=== PATIENT | female | born 1955 | race Caucasian/White ===

== ENCOUNTER 2016-11-23 05:43 | Day surgery (SDC) | payer MEDICARE, OTHER ==
[2016-11-23] MEDS ORDERED: CEFAZOLIN 1 GM VIAL ONE (06:08)
[2016-11-23] MEDS ORDERED: REMIFENTANIL HCL 2,000 MCG VIAL IV ONE (06:17)
[2016-11-23] MEDS ORDERED: TRIAMCINOLONE 40 MG/ML VIAL ONE (06:46)
[2016-11-23] MEDS ORDERED: hydrALAZINE 20 MG/ML VIAL IV PRN ×2 (06:47→10:42)
[2016-11-23] MEDS ORDERED: LABETALOL 20 MG/4 ML SYRINGE IV PRN ×2 (06:47→10:42)
[2016-11-23] MEDS ORDERED: ONDANSETRON HCL 4 MG ODT TAB PO PRN ×2 (06:47→10:42)
[2016-11-23] MEDS ORDERED: PROMETHAZINE 25 MG/ML VIAL IV PRN ×4 (06:47→10:42)
[2016-11-23] MEDS ORDERED: ONDANSETRON HCL 4 MG/2 ML VIAL IV PRN ×2 (06:47→10:42)
[2016-11-23] MEDS ORDERED: MEPERIDINE 25 MG/ML TUBEX IV PRN (06:47)
[2016-11-23] MEDS ORDERED: FENTANYL 100 MCG/2 ML VIAL IV PRN ×3 (06:47→10:42)
[2016-11-23] MEDS ORDERED: HYDROmorphone 1 MG INJECTION IV PRN ×6 (06:47→10:42)
--- NOTE | 2016-11-23 06:48 | SC.ANESPOS ---
[id number], Hemodynamically Stable, Pain Control Adequate Phase I & II Recovery Complete: Yes Apparent Anesthesia Complication: No : N - Vital Signs Blood Pressure: 116/77 Pulse: 97 Resp Rate: 18 O2 Sat: 93 Temp: 97.6 F
--- NOTE | 2016-11-23 06:54 | HIM.ANES ---
Anesthesia Evaluation & Plan Diagnoses: SPONDYLOSIS W/O MYELOPATHY OR RADICULOPATHY, CERVICAL REGION (11/23/16) Consented Procedure: CERVICAL 4-5, 6-7 ANTERIOR CERVICAL DISCECTOMY AND INTERBODY FUSION AND OTHER PROCEDURES INDICATED - Focused Review of Systems Cardiac History: Yes: Hx Cardiac Disorders, Hx Abnormal Cholesterol/ Hyperlipidemia HEENT: Yes: Hx Hearing Impairment (R>L), Hx Vision Problem (PRESCRIPTION GLASSES ), Other HEENT Problems Hx Other HEENT Problems: CHRONIC RHINNITIS Respiratory: Yes: Hx Snoring Gastrointestinal: Yes: Hx Gastroesophageal Reflux Disease (Controlled @ present) , Hx Gastrointestinal Disorders, Hx Colitis (ULCERATIVE COLITIS), Hx Colonoscopy (2013 NORMAL), Hx Endoscopy (2013) Neurological/Musculoskeletal: Yes: Hx Back Pain, Hx Numbness, Tingling, Weakness in Arms & Legs, Hx Neurological Disorders Other Neurological Problems: CERVICALGIA, NEUROPATHY IN HANDS AND AND FEET Psychological: Yes Hx Anxiety, Yes Hx Depression, Yes Hx Mental/Emotional Disorders HX Other Psyco/Soc Problems: depression/anxiety Blood/Autoimmune: Yes: Hx Blood Transfusions (1994), Hx Anemia No: Hx AIDS, Hx Hepatitis (type) Smoking Status: Former smoker Surgical History: Yes: Cholecystectomy (2000), Back (CERVICAL NECK FUSION 2005) , Knee (02/2015 LEFT TKA) Other Surgical History: PARTIAL HEMICOLECTOMY OF THE LARGE INTESTINE 1994 - Focused Physical Exam NPO since: 11/22/16 2230 Mallampati: Class II Thyromental Distance: Less than 3 Neck: Extends approx 45 s pain Dental: Loose/Decaying Teeth (Very poor dentition/poss damage discussed) Cardiovascular/Chest: Normal Respiratory: Lungs clear Any problems with anesthesia, including nausea and vomiting?: No Any relatives with a history of Malignant Hyperthermia?: No Beta Clay given (if appropriate): N/A Other: Allergies Allergy/AdvReac Type Severity Reaction Status Date / Time No Known Allergies Allergy Verified 11/23/16 06:19 Home Medications Medication Instructions Recorded Last Taken Type Acetaminophen [Arthritis Pain 650 mg PO DAILY PRN 10/09/16 Unknown History Relief] Alprazolam [Alprazolam ER] 0.5 mg PO DAILY PRN 10/09/16 11/22/16 History Atorvastatin Calcium [Lipitor] 40 mg PO HS 10/09/16 11/22/16 22:00 History Naproxen 250 mg PO DAILY 10/09/16 1 Week Ago History Sertraline HCl 200 mg PO HS 10/09/16 11/22/16 22:00 History Ergocalciferol (Vitamin D2) 50,000 units PO We@0900 11/23/16 11/22/16 History [Vitamin D] Height and Weight Patient's height 5 ft 2 in Patient's weight 131 lb 12.8 oz BMI 24.0 Vital Signs Temperature 97.6 F 11/23/16 06:48 Pulse Rate 97 11/23/16 06:48 Respiratory Rate 18 11/23/16 06:48 Blood Pressure 116/77 11/23/16 06:48 Pulse Oxygen Saturation 93 11/23/16 06:48 - Anesthetic Plan Anesthesia Type: General ASA Class: 2 -: I have examined this patient and reviewed the medical record. The patient has been assessed prior to anesthesia. Risks and benefits of anesthesia and anesthetic technique options have been discussed and all questions answered. The patient accepts the risk and desires me to proceed with the planned anesthetic.
--- NOTE | 2016-11-23 09:42 | HIMOPRPT ---
DATE OF PROCEDURE: 11/23/16 PREOPERATIVE DIAGNOSIS: 1- Cervical degenerative disc disease C4-5 C6-7 2- left Upper extremity radicular pain POSTOPERATIVE DIAGNOSIS: 1- Cervical degenerative disc disease C4-5, C6-7 2- left Upper extremity radicular pain PROCEDURE PERFORMED: 1. Anterior cervical diskectomy, interbody arthrodesis C4-5 2. Anterior cervical diskectomy, interbody arthrodesis C6-7 3. Anterior instrumentation C4-to C7 4- Placement of interbody cage C4-5 5. Placement of interbody cage C6-7 . 6. Removal deep implants spine C5-6 SURGEON: Johnnie Gayle MD. UNIX CONSULTANT: BRITTANY Yoon ANESTHESIA: General endotracheal Anesthesia. IV FLUIDS: Crystalloids ESTIMATED BLOOD LOSS: Minimal SPECIMENS: C4-5 and C6-7 disk. COMPLICATIONS: None. IMPLANTS: 1- Medtronic cervical locking plate 8 hole 2- Locking screws size 13 mm long 3- interbody cage size 5 at C4-5 and size 6 at C6-7 BRIEF HISTORY: SUSANNA ORDONEZ is a 61 year-old female patient. Patient had prior history of anterior cervical diskectomy and interbody arthrodesis at C5-6 done at an outside facility. Patient had developed adjacent segment degeneration at the level above and below . Patient had complaints of axial neck pain and upper extremity radicular pain. Patient had MRI evidence of canal and foraminal stenosis at C4-5 and C6-7 . Patient had tried and failed conservative treatment including anti-inflammatory medication, activity modification, physical therapy, chiropractic treatment, cervical epidural steroid injection. Patient had difficulty in activities of daily living. Failing conservative treatment patient indicated the desire to proceed with surgical intervention. It was explained that infection, bleeding and were risks that accompanied any invasive procedure and that paralysis is a possible complication of any spine surgery. It was explained to the patient that other risks, including but not limited to seroma, hematoma, artery or vein injury, nerve damage, pain, weakness, numbness, tingling, or bladder dysfunction, incontinence, spinal fluid leak, nonunion, malunion, implant failure, loss of fixation, painful hardware, persistent symptoms, adjacent segment instability, adjacent segment degeneration, need for further surgery, sore throat, hoarseness, difficulty swallowing, Su's syndrome, esophageal perforation, Tracheal injury, urine to retract infection, deep venous thrombosis, pulmonary embolism, pneumonia, ileus, ulcers, stroke, heartattack, and among others. It was explained that if he the patient had any reservation about any of these potential complications are if the risk of any of these complications occurring was unacceptable the patient should not undergo the procedure. Because he expressed understanding and chose to proceed as planned, the patient was taken to the operating room where the above listed procedure was performed. The patient volunteered an informed consent. The patient was seen on the day of surgery in the preop holding area. Surgical site was marked. The patient was then wheeled back into the operating room. DESCRIPTION OF THE PROCEDURE: The patient was seen and identified in the preop holding area. The surgical region was confirmed with the patient and initialed on the skin by the surgeon. The patient was then brought back to the operating room. The patient was transferred to the OSI flat table in the supine position and while still awake. The patient was positioned in a comfortable position. Patient then underwent induction of general endotracheal anesthesia without complication. Proper time out was performed confirming the identity of the patient and the planned procedure. Her head and neck was maintained in excellent alignment during placement of endotracheal tube which was then stabilized.[A Bruce catheter was placed as were sequential compression devices on both lower extremities, all of which were continued for the duration of the procedure. A well-padded bump was placed behind the shoulders to allow for very gentle cervical extension and optimal exposure to the anterior aspect of the neck. . Intraoperative neurophysiologic monitoring was also employed for the duration of the procedure and monitoring leads were also placed. The anterior aspect of the neck was shaved smooth with clippers and cleanse thoroughly with alcohol. The surgical region was sealed off with plastic drapes. C-arm was brought in to identify the approximate surgical region,which was marked on the skin with a pen. The area was then prepped and draped in standard sterile fashion. The patient received 2 g of Ancef intravenously immediately preoperatively and within 30 min. of skin incision. We utilized a standard anterior approach to the cervical spine from a left- sided approach. A transverse incision was made in the skin to left of the midline. Bovie cautery was used for additional dissection and hemostasis through the subcutaneous tissue. The platysma was identified, mobilized, and then transected in line with the skin incision. Blunt dissection was then continued down to the deeper fascial layers. Each of these layers was first mobilized bluntly and then retracted carefully. The strap muscles, trachea, pharynx and esophagus were retracted towards midline, and the vascular structures retracted laterally. blunt dissection was then continued down to the prevertebral fascia exposing the anterior longitudinal ligament. A lateral C-arm image was then obtained to confirm the surgical level and the level was identified as C4-5. The longus coli muscles were elevated and mobilized bilaterally. Blunt self retaining retractors were then placed. We proceeded with removal of the deep anterior cervical implants at C5-6. This was a Medtronic plate and it was removed uneventfully along with the 4 locking screws. Next we proceeded with the anterior discectomy and interbody arthrodesis for decompression of the canal at C4-5 . There was significant degeneration of the disc. The remaining portions of the disc were mobilized and resected in a piecemeal fashion using a combination of curettes, rongeurs and a high-speed bur. The disc was excised and osteophytes were resected laterally to the uncovertebral joints. This was also taken back to and through the annulus and posterior longitudinal ligament. The dura was identified and protected. No dural tears were encountered at any time during the procedure. Additional time was spent taking down some of the posterior osteophytes and particularly along the inferior aspect of the endplate of C4 and superior endplate of C5 . An angled curet was also used to undercut the posterior aspect of the vertebral bodies to allow for adequate decompression. Kerrison rongeur was also used for resection and some decompression of the foramina. The area was checked with a small narrow folk to ensure adequate decompression. The disc was irrigated on multiple occasions with copious amount of sterile normal saline. Epidural bleeding was managed with FloSeal. Next we placed Warren pins at C4-5 .Next we prepared for anterior interbody arthrodesis at C4-5 . The end plates of C4 and C5 were denuded of cartilage and exposing bleeding bone. We sized for a 5 millimeter size spacer. The center portion of this cage was packed with portions of local bone autograft. The cage was tamped into place gently. Final positioning was checked with lateral views on C-arm and felt to be satisfactory. The Warren pins were then removed. Next we proceeded with the anterior discectomy and interbody arthrodesis for decompression of the canal at C6-7 . There was significant degeneration of the disc. The remaining portions of the disc were mobilized and resected in a piecemeal fashion using a combination of curettes, rongeurs and a high-speed bur. The disc was excised and osteophytes were resected laterally to the uncovertebral joints. This was also taken back to and through the annulus and posterior longitudinal ligament. The dura was identified and protected. No dural tears were encountered at any time during the procedure. Additional time was spent taking down some of the posterior osteophytes and particularly along the inferior aspect of the endplate of C6 and superior endplate of C7 . An angled curet was also used to undercut the posterior aspect of the vertebral bodies to allow for adequate decompression. Kerrison rongeur was also used for resection and some decompression of the foramina. The area was checked with a small narrow folk to ensure adequate decompression. The disc was irrigated on multiple occasions with copious amount of sterile normal saline. Epidural bleeding was managed with FloSeal. Next we placed Warren pins at C6-7 .Next we prepared for anterior interbody arthrodesis at C6-7 . The end plates of C6 and C7 were denuded of cartilage and exposing bleeding bone. We sized for a 6 millimeter size spacer. The center portion of this cage was packed with portions of local bone autograft. The cage was tamped into place gently. Final positioning was checked with lateral views on C-arm and felt to besatisfactory. The Warren pins were then removed. Next we proceeded with the application of anterior instrumentation at C4-C7 . We used a Formspringtronic 8 hole plate. This was aligned on the anterior aspect of the cervical spine. This was then affixed with 4 screws. All the screws had excellent purchase and then were tightened to the final torque beyond the capturing. Orthogonal views were obtained on Berta and overall alignment and fixation were felt to be satisfactory. The wounds space was irrigated for a final time. A 1/8 inch Hemovac drain was placed deep within the wound space. We then prepared the wound for wound closure. The platysma fascia was reapproximated with Vicryl sutures as was the subcutaneous tissue. A Monocryl suture was used for the skin. Steri-Strips and sterile dressing was applied. Disposition: The patient was then transferred to his hospital bed in the supine position. The patient was awakened and extubated without complication. Patient was placed in cervical arthrosis. Upon awakening patient was able to demonstrate broad smoker function in the upper and lower extremities. Patient was then transferred to the postanesthesia care unit awake and in stable condition. No immediate complications were noted.
[2016-11-23] MEDS ORDERED: ALPRAZOLAM 0.5 MG PO PRN (09:58)
[2016-11-23] MEDS ORDERED: SODIUM CHLORIDE 0.9% 3 ML FLUSH FLUSH PRN (09:59)
[2016-11-23] MEDS ORDERED: MAGNESIUM HYDROXIDE 30 ML BOTTLE PO PRN (09:59)
[2016-11-23] MEDS ORDERED: DIPHENHYDRAMINE 50 MG/ML VIAL IV PRN (09:59)
[2016-11-23] MEDS ORDERED: Aluminum;Magnesium;Simethicone 30 ML UDC PO PRN (09:59)
[2016-11-23] MEDS ORDERED: DIPHENHYDRAMINE 25 MG CAP PO PRN (09:59)
[2016-11-23] MEDS ORDERED: NALOXONE 0.4 MG/ML AMPULE IV SCH (10:00)
[2016-11-23] MEDS ORDERED: Pharmacy Discontinue All Previous Acetaminophen Orders SCH (10:00)
[2016-11-23] MEDS ORDERED: FENTANYL 100 MCG/2 ML VIAL ONE ×2 (10:32→11:28)
[2016-11-23] MEDS: FENTANYL 100 MCG/2 ML VIAL IV PRN ×4 (10:37→11:50)
[2016-11-23] MEDS ORDERED: VITAMINS, MULTIPLE CAP PO SCH (12:00)
[2016-11-23] MEDS: OXYCODONE HCL 5 MG TABLET PO SCH ×4 (12:37→20:44)
[2016-11-23 13:07] VITALS: BMI 25.2
[2016-11-23] MEDS ORDERED: Vaccine Screening Complete SCH (14:00)
[2016-11-23] MEDS: ACETAMINOPHEN 325 MG/TAB TABLET PO SCH ×3 (14:11→23:13)
[2016-11-23] MEDS: Cefazolin 2gm/50 ml D5W 2 GM/50 ML RTU IV SCH ×2 (14:12→20:45)
[2016-11-23] MEDS: ONDANSETRON HCL 4 MG/2 ML VIAL IV SCH ×3 (14:12→23:13)
[2016-11-23] MEDS: CALCIUM CARBONATE + VITAMIN D 500 MG TAB PO SCH ×2 (14:15→17:08)
[2016-11-23] MEDS ORDERED: DEXAMETHASONE 4 MG/ML VIAL IV ONE (15:36)
[2016-11-23] MEDS ORDERED: FENTANYL 250 MCG/5 ML VIAL IV ONE (15:36)
[2016-11-23] MEDS ORDERED: ONDANSETRON HCL 4 MG/2 ML VIAL IV ONE (15:36)
[2016-11-23] MEDS ORDERED: SUCCINYLCHOLINE 20 MG/1 ML INJ 10 ML MDV IV ONE (15:36)
[2016-11-23] MEDS ORDERED: LIDOCAINE 100 MG PFS IV ONE (15:36)
[2016-11-23] MEDS ORDERED: MIDAZOLAM 2 MG/2 ML VIAL IV ONE (15:36)
[2016-11-23] MEDS ORDERED: PROPOFOL 200 MG/20 ML VIAL IV ONE (15:36)
[2016-11-23] MEDS: SODIUM CHLORIDE 0.9% 3 ML FLUSH FLUSH SCH (17:09)
[2016-11-23] MEDS ORDERED: DOCUSATE-SENNA CONCENTRATE TAB PO SCH (21:00)
[2016-11-23] MEDS ORDERED: ATORVASTATIN 40 MG TAB PO SCH (21:00)
[2016-11-23] MEDS ORDERED: SERTRALINE HCL 100 MG TAB PO SCH (21:00)
[2016-11-24] MEDS: OXYCODONE HCL 5 MG TABLET PO SCH ×3 (02:46→09:50)
[2016-11-24 05:42] LABS: MPV 7.5 fL (7.4-10.4)
[2016-11-24] MEDS: SODIUM CHLORIDE 0.9% 3 ML FLUSH FLUSH SCH (05:53)
[2016-11-24] MEDS: ACETAMINOPHEN 325 MG/TAB TABLET PO SCH (05:56)
[2016-11-24] MEDS: Cefazolin 2gm/50 ml D5W 2 GM/50 ML RTU IV SCH (05:56)
[2016-11-24 05:57] LABS: BLOOD UREA NITROGEN 6 MG/DL (7-17); CALCIUM 9.1 MG/DL (8.4-10.2); CALCULATED OSMOLALITY 267 MOs/Kg (270-290); CHLORIDE 100 mEq/L (98-107); GLUCOSE 95 MG/DL (70-99); SODIUM LEVEL 140 mEq/L (137-146)
[2016-11-24] MEDS: ONDANSETRON HCL 4 MG/2 ML VIAL IV SCH (05:57)
--- NOTE | 2016-11-24 06:58 | PCM.ORTHBL ---
- Subjective Post Op Day: 1 Daily Assessment - Patient: Reports: No new complaints, Awake Alert Oriented x4 , Feels better, Tolerating Regular Diet, Voiding without difficulty, Afebrile, Ambulating in [place], Ambulating in Room, Other (denies chest pain). Denies: Hoarseness of voice, Difficulty Swallowing, Shortness of breath, Nausea, Vomiting - Objective / Physical Exam Vital Signs: Temperature: 97.8 F (11/24/16 06:44) HR: 86 (11/24/16 06:44)RR: 18 (11/24/16 06: 44) BP: 98/56 (11/24/16 06:44)Pulse Ox: 94 (11/24/16 06:44) General: Alert, Oriented x3, Cooperative, No acute distress, Well appearing Musculoskeletal / Extremities: 2 plus Radial Pulse, Dressing Clean/Dry/Intact, Other (Able to move all fingers freely) Neurological: Sensation to light touch intact (UE nad LE), Dorsiflexion Intact Spine: limited range of motion (cervical) - Assessment and Plan (1) Degenerative disc disease, cervical Acute M50.30 - OTHER CERVICAL DISC DEGENERATION, UNSP CERVICAL REGION Present on Admission: Yes Plan: POD#1 s/p ACDF Continue pain management Patient ambulating well in room and alvares Continue cervical collar, ok to loosen while in bed, but recommend she continue using it Avoid flexion/rotation of the neck. No lifting greater than 5 pounds Discharge plan for home
--- NOTE | 2016-11-24 07:01 | PCM.DCS92 ---
- Final/Secondary Discharge Diagnosis (1) Degenerative disc disease, cervical Acute M50.30 - OTHER CERVICAL DISC DEGENERATION, UNSP CERVICAL REGION Present on Admission: Yes Discharge Disposition: Home Discharge Condition: Stable Cognitive Discharge Status: Unimpaired Fuctional Discharge Status: Post-op Weakness Physician Follow up/Referrals: Johnnie Gayle MD [Staff Physician] - Two Weeks Home Medications/ New Prescriptions: New Oxycodone Immediate Release [Oxycodone Immediate Release (OxyIR)] 5 mg PO Q4H PRN #40 tab PRN Reason: Pain Senna Concentrate [Senokot] 2 tab PO QHS #60 tablet No Action Sertraline HCl 200 mg PO HS Naproxen 250 mg PO DAILY Atorvastatin Calcium [Lipitor] 40 mg PO HS Acetaminophen [Arthritis Pain Relief] 650 mg PO DAILY PRN PRN Reason: ARTHRITIS PAIN Alprazolam [Alprazolam ER] 0.5 mg PO DAILY PRN PRN Reason: PUBLIC ANXIETY Ergocalciferol (Vitamin D2) [Vitamin D] 50,000 units PO We@0900 Omeprazole 20 mg PO DAILY Diet at Discharge: As Tolerated, Regular Activity: Limited (No lifting greater than 5 pounds. Avoid flexion/rotation of the neck.), No Heavy Lifting, No Driving Call Office For: Worsening Symptoms, Wound is Draining Pus, Fever over 101 F, Fever over 100.5, Wound is Painful, Wound is Red, Weight Gain (see below), Pain Uncontrolled By Meds, Other (See Details) Discontinue use of:: Alcohol, All Illegal Substances, All Types of Tobacco - DC Summary Notes Hospital Course Note:: Discharge summary on patient named SUSANNA ORDONEZ admitted to [facility] on 11/23/16 by Johnnie Gayle MD. Date of discharge is [11/24/16]. Afebrile. Hospital course and surgery uneventful. Ambulating in room and alvares. Continue pain management. No lifting greater than 5 pounds. Avoid flexion/rotation of the neck. Continue cervical collar, ok to loosen while lying in bed. Keep dressing clean and dry. Do not remove Ioban. OK to shower with Ioban in place. Call office with any dressing concerns. No NSAIDs for 3 months post-op. No aspirin for 72 hours. Stable for discharge home. To follow -up in office in 2 weeks or earlier as needed. Wound Care Surgical Site: Yes Site Description (if applicable): anterior neck Dressing/Site Care (if applicable): Keep dressing clean and dry. Do not remove Ioban. OK to shower with Ioban in place. Call office with any dressing concerns. Remove Transdermal Scopalamine patch if present: YES Medication Instructions: Take Stool Softener, Rx on Chart Activity as Tolerated: No (No lifting greater than 5 pounds. Avoid flexion/ rotation of the neck) Weight Bearing: As Tolerated Current Dressing: Ioban Dressing Care: Keep Wound Clean & Dry, Shower with Tegaderm Dsg (Ioban), No Tub Baths, Do Not Change Dressing (Keep dressing clean and dry. Do not remove Ioban. OK to shower with Ioban in place. Call office with any dressing concerns.) - Consults/Home Health Outpatient Consults: None - Physical Exam Vital Signs: Initial Vitals Temperature 97.6 F 11/23/16 06:19 Pulse Rate 97 11/23/16 06:19 Respiratory Rate 18 11/23/16 06:19 Blood Pressure 116/77 11/23/16 06:19 Pulse Oxygen Saturation 93 11/23/16 06:19 Last Vital Signs Temp 97.8 F 11/24/16 06:44 Pulse 86 11/24/16 06:44 Resp 18 11/24/16 06:44 BP 98/56 L 11/24/16 06:44 Pulse Ox 94 11/24/16 06:44 Constitutional: No apparent distress, Alert, Well appearing Oriented to: Time, Person, Place - HEENT Head: Normal - Musculoskeletal Extremities: Radial Pulse, Other (able to move all fingers freely. SITLT. dressing clean, dry, intact) Spine: limited range of motion - Neurologic Memory Impaired: Normal Motor Function: Normal Cranial Nerve: Normal Cerebellar: Normal Mood Description: Normal Thought: Coherent Perception: Normal
[2016-11-24] MEDS ORDERED: FLU VACCINE (Afluria) 0.5 ML DOSE IM ONE (08:00)
[2016-11-24] MEDS ORDERED: PNEUMOCOCCAL 0.5 ML VIAL IM ONE (08:00)
[2016-11-24 10:03] VITALS: BP 122/71; PULSE 90; TEMP 96.5
[2016-11-24] MEDS ORDERED: ONDANSETRON HCL 4 MG/2 ML VIAL IV PRN (12:00)
[2016-11-29] MEDS ORDERED: ERGOCALCIFEROL (VITAMIN D2) 50000 UNITS CAP PO SCH (09:00)
== END 2016-11-24 12:45 | disposition home or self-care (01) ==
LOC: SDC 05:43 → MPS3 12:19
PROVIDERS: ADMIT Orthopaedic Surgery; ATTEND Orthopaedic Surgery
PROC: 0RG20A0 Fusion of 2 or more Cervical Vertebral Joints with Interbody Fusion Device, Anterior Approach, Anterior Column, Open Approach (ICD-10-PCS; 2016-11-23)
PROC: 0RB30ZZ Excision of Cervical Vertebral Disc, Open Approach (ICD-10-PCS; 2016-11-23)
PROC: 0SP20JZ Removal of Synthetic Substitute from Lumbar Vertebral Disc, Open Approach (ICD-10-PCS; principal; 2016-11-23 07:15)
DX: M50.121 Cervical disc disorder at C4-C5 level with radiculopathy (principal); M50.123 Cervical disc disorder at C6-C7 level with radiculopathy; E78.00 Pure hypercholesterolemia, unspecified; Z79.52 Long term (current) use of systemic steroids; Z79.899 Other long term (current) drug therapy; Z23 Encounter for immunization
CPT/HCPCS: 20680; 22551; 22552; 22853; 80048; 85027; 86850; 86900; 86901; 90732; 95861; 95937; 95938; 95939; 97161; 97165; A9270; G0008; G0009; G0237; G0378; J0330; J0690; J1100; J2001; J2405; J2550; J3010; J3301; J3490; L0172; Q2035; 90471; 90656; J2250